=== PATIENT | female | born 1985 | race Caucasian/White ===

== ENCOUNTER → 2018-12-12 | Outpatient (CLI) | payer OTHER ==
--- NOTE | 2018-12-12 14:44 | REP ---
BILATERAL SCREENING DIGITAL MAMMOGRAM WITHOUT 3D TOMOSYNTHESIS: The study includes spot magnification view of the left breast subareolar zone where there is a palpable lump. The the patient states she has not had a clinical breast examination in over a year. The Tyrer Cuzick Score is: 14.3% . This is a baseline study, there are no comparisons. A cutaneous marker identifies the location of the palpable lump in the left breast subareolar zone. The breasts are heterogeneously dense, which could obscure small masses. There is no dominant mass, micro calcific cluster or architectural distortion that would indicate malignancy. There is no focal suspicious finding in the left breast retroareolar zone, including spot magnification view. Impression: BIRADS/ACR category 1 mammogram. Negative. Recommendation: Routine annual screening mammography. Because of the increased breast density, annual adjunctive breast MRI in addition to screening mammography is recommended. However, because there is a palpable lump, left breast ultrasound of the lump is performed even though t there are no focal abnormalities on mammography. Please refer to the ultrasound report for additional information. A complex cyst is identified in the subareolar zone of the left breast by ultrasound. This is not visible on the mammograms. Follow up of this cyst is recommended by palpation and with follow-up ultrasonography when felt to be clinically indicated. This mammogram was interpreted with the aid of a FDA approved computer-aided detection system. A. Negative mammogram reports should not delay biopsy if a dominant or clinically suspicious mass is present. B. Not all breast cancers are identified by mammography or tomosynthesis. C. Adenosis and dense breasts may obscure an underlying neoplasm. Patient letter M1 dense breasts. Electronically Signed by Lenard Bergeron MD 12/12/2018 02:36 P
--- NOTE | 2018-12-12 14:56 | REP ---
Ultrasonography of a left breast palpable lump in the retroareolar zone: The patient states there has been some nipple drainage. The palpable lump corresponds to a complex retroareolar cyst measuring 10.8 x 6.9 x 9.8 mm. There is slight hyperemia at the cyst margin. The cyst is adjacent to a few dilated retroareolar ducts. There is swirling debris within the cyst. Impression: The palpable lump corresponds to a complex retroareolar cyst in the left breast as described. Follow up by clinical palpation is recommended with follow-up ultrasonography as felt clinically indicated. Follow-up is recommended to complete resolution. Please refer to the mammogram report for additional information. Electronically Signed by Lenard Bergeron MD 12/12/2018 02:48 P
== END ==
LOC: M RAD 13:12
PROVIDERS: ATTEND Family Medicine
DX: N60.02 Solitary cyst of left breast (principal)